=== PATIENT | female | born 1985 | race Caucasian/White ===

== ENCOUNTER 2017-03-04 19:44 | Emergency (ER) | payer MEDICAID ==
[2017-03-04 19:49] VITALS: BP 123/74; BMI 32.2
[2017-03-04 20:50] LABS: BILIRUBIN,URINE NEGATIVE (NEGATIVE); BLOOD/HEMOGLOBIN,URINE 5+ (NEGATIVE); GLUCOSE, URINE NEGATIVE (NEGATIVE); KETONES,URINE NEGATIVE (NEGATIVE); LEUKOCYTE ESTERASE ,URINE 2+ (NEGATIVE); NITRITES,URINE NEGATIVE (NEGATIVE); PROTEIN,URINE NEGATIVE (NEGATIVE); UROBILINOGEN,URINE NORMAL (NORMAL)
--- NOTE | 2017-03-04 20:54 | DR.GENAD ---
HPI - PCP Primary Care Physician: adria panda - HPI Comment HPI Comment: AHDOMINAL PAIN THIS EVENING. NAUSEA, VOMITIND AND GENERALIZE WEAKNESS. PATIENT HAVE HISTORY OF PANCREATITIS. HAVE NOT HAD AN EPISODE RECENTLY. ALSO HISTORY OF PUD. HAVE SLIGHT DYSURIA TODAY. NO FEVER. - Complaint/Symptoms Chief Complaint Doctors Comments: ABDOMINAL PAIN, NAUSEA, VOMITING, WEAKNESS. Chief Complaint:: RIGHT SIDE PAIN, CHEST PAIN AND NAUSEA O/S 30 MIN PRIOR TO ARRIVAL . DIARRHEA STARTED AT 1700. DENIES VOMITING. - Nurses notes reviewed Nurses Notes Review: Yes - Source History Provided: Patient - Mode of Arrival Mode of Arrival: Ambulatory - Timing Onset of Chief Complaint: 03/04/17 Came on: Suddenly - Duration Duration: Constant Duration: Hours - Severity Severity: Moderate PMH - PMH Past Medical History: Yes Past Medical History: Anemia, Anxiety, Depression, GERD, Hypertension, Kidney Stones, PUD Past Surgical History: Yes Surgical History: Cholecystectomy, Hysterectomy - Family History History of Family Medical Conditions: Yes Family Medical History: Hypertension - Social History Does patient currently use any type of tobacco product: No Have you used tobacco products in the last 12 months: No Type of Tobacco Use: None Does any household member use tobacco: No Alcohol Use: None Do you use any recreational Drugs:: No Lives With: Family Lives Where: Home - infectious screening Have you traveled outside the country in the last 6 months?: No Isolation: Standard ROS - Review of Systems Constitutional: Weakness, Fatigue. negative: Chills, Fever, Loss of Appetite Eyes: No Symptoms Reported. negative: Eye Pain, Discharge ENTM: No Symptoms Reported. negative: Ear Pain, Nose Discharge, Nose Congestion , Throat Pain Respiratoy: No Symptoms Reported. negative: Productive Cough, Non-Productive Cough, Short of Breath, Wheezing, Hemoptysis Cardiovascular: No Symptoms Reported. negative: Chest Pain Gastrointestinal/Abdominal: Abdominal Pain, Nausea, Vomiting. negative: Constipation, Diarrhea Genitourinary: Dysuria. negative: Frequency, Hematuria Neurological: Headache, Weakness Musculoskeletal: Muscle Pain Integumentary: Dryness Hematologic/Lymphatic: No Symptoms Reported Endocrine: No Symptoms Reported All Other Systems: Reviewed and Negative PE - Vital Signs Vitals: Temperature 97.8 F Pulse Rate 110 Respiratory Rate 20 Blood Pressure [Right Arm] 106/57 Blood Pressure [Left Arm] 90/57 Blood Pressure [Right Arm] 99/58 Blood Pressure [Left Arm] 119/83 Blood Pressure 123/74 O2 Sat by Pulse Oximetry 100 - General Limitations: No Limitations General Appearance: Alert - Head Head Exam: Normal Inspection - Eyes Eye exam: Normal Appearance - ENT ENT Exam: Normal External Ear Exam External Ear Exam: Normal External Inspection TM/Canal Exam: Left Normal Nose Exam: Normal Nose Exam Mouth Exam: Normal Inspection Throat Exam: Normal Inspection - Neck Neck Exam: Trachea Midline - Chest Chest Inspection: Symmetric Chest Wall Rise - Respiratory Respiratory Exam: Normal Lung Sounds Bilat Respiratory Exam: Bilateral Clear to Auscultation - Cardiovascular Cardiovascular Exam: Regular Rate, Normal Rhythm, Normal Heart Sounds - Abdominal Exam Abdominal Exam: Normal Bowel Sounds, Soft, Tenderness Abdominal Tenderness: Diffuse, Moderate - Extremities Extremities Exam: Normal Inspection - Back Back Exam: Normal Inspection - Neurologic Neurological Exam: Alert, Oriented X3 - Psychiatric Psychiatric Exam: Normal Affect, Normal Mood - Skin Skin Exam: Normal Color MDM - Differential Diagnosis Differential Diagnosis: ABDOMINAL PAIN, PANCRATITIS, UTI, PUD Course - Treatment Treatment: SEE ORDERS. IM PAIN AND NAUSEA MED IN ED. IMPROVED. - Reevaluation 1st: Improved - Education/Counseling Education/Counseling: Patient, Education Educated On: Treatment, Diagnosis, Needs for Follow Up ROR - Labs Reviewed Laboratory Results Reviewed?: Yes Result Diagrams: 03/04/17 21:14 03/04/17 21:14 Laboratory: WBC 9.5 X10^3/uL (3.6-10.0) 03/04/17 21:14 RBC 4.50 X10^6/uL (3.5-5.4) 03/04/17 21:14 Hgb 13.1 g/dL (12.0-16.0) 03/04/17 21:14 Hct 37.8 % (36.0-47.0) 03/04/17 21:14 MCV 84.0 fL (80.0-100.0) 03/04/17 21:14 MCH 29.2 pg (27.0-34.0) 03/04/17 21:14 MCHC 34.7 g/dL (33.0-35.0) 03/04/17 21:14 RDW 13.7 % (11.6-16.5) 03/04/17 21:14 Plt Count 210 X10^3/uL (150.0-450.0) 03/04/17 21:14 MPV 9.3 fL (7.4-11.0) 03/04/17 21:14 Neut % 73.6 % (42.0-75.0) 03/04/17 21:14 Lymph % 15.4 % (21.0-51.0) L 03/04/17 21:14 [place] % 8.2 % (0.0-13.0) 03/04/17 21:14 Eos % 2.1 % (0.9-2.9) 03/04/17 21:14 Baso % 0.7 % (0.2-1.0) 03/04/17 21:14 Neut # 7.0 x10^3/uL (2.2-4.8) H 03/04/17 21:14 Lymph # 1.5 X10^3/uL (1.3-2.9) 03/04/17 21:14 [place] # 0.8 x10^3/uL (0.3-0.8) 03/04/17 21:14 Eos # 0.2 x10^3/uL (0.0-0.2) 03/04/17 21:14 Baso # 0.1 X10^3/uL (0.0-0.1) 03/04/17 21:14 Absolute Nucleated RBC 0.1 /100WBC 03/04/17 21:14 Sodium 141 mmol/L (136-145) 03/04/17 21:14 Corrected Sodium TNP 03/04/17 21:14 Potassium 3.8 mmol/L (3.5-5.1) 03/04/17 21:14 Chloride 105 mmol/L (98-107) 03/04/17 21:14 Carbon Dioxide 27.2 mmol/L (21-32) 03/04/17 21:14 BUN 10 mg/dL (7-18) 03/04/17 21:14 Creatinine 0.82 mg/dL (0.55-1.02) 03/04/17 21:14 Est GFR (MDRD) Af Amer > 60 (>60) 03/04/17 21:14 Est GFR (MDRD) Non-Af > 60 (>60) 03/04/17 21:14 Glucose 99 mg/dL (65-99) 03/04/17 21:14 Calcium 8.8 mg/dL (8.5-10.1) 03/04/17 21:14 Corrected Calcium TNP 03/04/17 21:14 Total Bilirubin 0.70 mg/dL (0.2-1.0) 03/04/17 21:14 AST 11 Units/L (15-37) L 03/04/17 21:14 ALT 19 Units/L (12-78) 03/04/17 21:14 Alkaline Phosphatase 108 Units/L (46-116) 03/04/17 21:14 Total Protein 7.7 g/dL (6.4-8.2) 03/04/17 21:14 Albumin 4.0 g/dL (3.4-5.0) 03/04/17 21:14 Globulin 3.7 g/dL (2.5-4.5) 03/04/17 21:14 Albumin/Globulin Ratio 1.1 Ratio (1.1-2.1) 03/04/17 21:14 Amylase 36 Units/L (25-115) 03/04/17 21:14 Lipase 43 Units/L (73-393) L 03/04/17 21:14 Specimen Type Clean catch urine 03/04/17 20:45 Urine Color Yellow (YELLOW) 03/04/17 20:45 Urine Appearance Hazy (CLEAR) 03/04/17 20:45 Urine pH 6.0 (5.0 - 8.0) 03/04/17 20:45 Ur Specific [place] 1.015 (1.000-1.030) 03/04/17 20:45 Urine Protein Negative (NEGATIVE) 03/04/17 20:45 Urine Glucose (UA) Negative (NEGATIVE) 03/04/17 20:45 Urine Ketones Negative (NEGATIVE) 03/04/17 20:45 Urine Occult Blood 5+ (NEGATIVE) 03/04/17 20:45 Urine Nitrite Negative (NEGATIVE) 03/04/17 20:45 Urine Bilirubin Negative (NEGATIVE) 03/04/17 20:45 Urine Urobilinogen Normal (NORMAL) 03/04/17 20:45 Ur Leukocyte Esterase 2+ (NEGATIVE) 03/04/17 20:45 Urine RBC 0-3 /HPF (NEGATIVE) 03/04/17 20:45 Urine WBC 6-10 /HPF (NEGATIVE) 06/26/17 20:45 Ur Squamous Epith Cells Few /HPF (NEGATIVE) 03/04/17 20:45 Urine Bacteria 1+ /HPF (NEGATIVE) 03/04/17 20:45 Ur Culture Indicated? Yes/culture set up 03/04/17 20:45 - Diagnosis Discharge Problem: Abdominal pain Qualifiers: Abdominal location: generalized Qualified Code(s): R10.84 - Generalized abdominal pain UTI (urinary tract infection) Qualifiers: Urinary tract infection type: acute cystitis Hematuria presence: without hematuria Qualified Code(s): N30.00 - Acute cystitis without hematuria - Discharge Plan Disposition: HOME, SELF-CARE Condition: Stable Prescriptions: Ciprofloxacin HCl [CIPRO 500 MG TAB *] 500 mg PO Q12H #20 tab Promethazine HCl [PHENERGAN TAB 25 MG *] 25 mg PO Q8H PRN #12 tab PRN Reason: Nausea/Vomiting - Follow ups/Referrals Follow ups/Referrals: Amauri Dennis [Primary Care Provider] - 3 days - Instructions Instructions: Abdominal Pain, Adult, [id number], Urinary Tract Infection, [id number] Additional Instructions: RETURN TO ED IF WORSE.
[2017-03-04 20:58] LABS: APPEARANCE,URINE HAZY (CLEAR); COLOR,URINE YELLOW (YELLOW); RBC,URINE 0-3 /HPF (NEGATIVE)
[2017-03-04 20:59] LABS: BACTERIA,URINE 1+ /HPF (NEGATIVE); SQUAMOUS EPITHELIAL CELL,UR FEW /HPF (NEGATIVE)
[2017-03-04] MEDS ORDERED: PHENERGAN INJ 25 MG IM ONE (21:07)
[2017-03-04] MEDS ORDERED: TORADOL 60 MG VIAL IM ONE (21:07)
[2017-03-04] MEDS ORDERED: PHENERGAN INJ 25 MG ONE (21:17)
[2017-03-04] MEDS ORDERED: TORADOL 60 MG VIAL ONE (21:18)
[2017-03-04 21:24] LABS: BASOPHILS # (AUTO) 0.1 X10^3/uL (0.0-0.1); BASOPHILS % (AUTO) 0.7 % (0.2-1.0); EOSINOPHILS # (AUTO) 0.2 x10^3/uL (0.0-0.2); EOSINOPHILS % (AUTO) 2.1 % (0.9-2.9); HEMATOCRIT 37.8 % (36.0-47.0); HEMOGLOBIN 13.1 g/dL (12.0-16.0); LYMPHOCYTES # (AUTO) 1.5 X10^3/uL (1.3-2.9); LYMPHOCYTES % (AUTO) 15.4 % (21.0-51.0); MEAN CORPUSCULAR HEMOGLOBIN 29.2 pg (27.0-34.0); MEAN CORPUSCULAR HGB CONC 34.7 g/dL (33.0-35.0); MEAN PLATELET VOLUME 9.3 fL (7.4-11.0); MONOCYTES # (AUTO) 0.8 x10^3/uL (0.3-0.8); MONOCYTES % (AUTO) 8.2 % (0.0-13.0); NEUTROPHILS % (AUTO) 73.6 % (42.0-75.0); PLATELET COUNT 210 X10^3/uL (150.0-450.0); RED CELL DISTRIBUTION WIDTH 13.7 % (11.6-16.5); WHITE BLOOD COUNT 9.5 X10^3/uL (3.6-10.0)
[2017-03-04 21:36] LABS: ALANINE AMINOTRANSFERASE 19 Units/L (12-78); ALKALINE PHOSPHATASE 108 Units/L (46-116); AMYLASE 36 Units/L (25-115); ASPARTATE AMINO TRANSFERASE 11 Units/L (15-37); BLOOD UREA NITROGEN 10 mg/dL (7-18); CALCIUM 8.8 mg/dL (8.5-10.1); CARBON DIOXIDE 27.2 mmol/L (21-32); CHLORIDE 105 mmol/L (98-107); CREATININE 0.82 mg/dL (0.55-1.02); GLUCOSE 99 mg/dL (65-99); LIPASE 43 Units/L (73-393); SODIUM 141 mmol/L (136-145); TOTAL PROTEIN 7.7 g/dL (6.4-8.2); eGFR BLACK RACES > 60 (>60); eGFR NON BLACK RACES > 60 (>60)
[2017-03-04] MEDS ORDERED: CIPRO TAB 500 MG PO ONE ×2 (22:31→22:34)
== END 2017-03-04 22:42 | disposition home or self-care (01) ==
LOC: ER 19:52
DX: N30.00 Acute cystitis without hematuria (principal); R10.84 Generalized abdominal pain; R07.89 Other chest pain
CPT/HCPCS: 36415; 80053; 81001; 82150; 83690; 85025; 87086; 87088; 87186; 96372; 99282; 99283; J1885; J2550

== ENCOUNTER → 2017-04-23 | Outpatient (CLI) | payer MEDICAID ==
--- NOTE | 2017-04-23 09:32 | US ---
HISTORY: Chronic UTI Study: Abdominal ultrasound Comparison: CT abdomen pelvis September 07, 2014 Technique: Multiple hill scale and color flow Doppler images of the abdomen were obtained. Findings: The liver is normal in echotexture. No intraparenchymal mass or intrahepatic biliary ductal dilatat ion can be identified. The gallbladder is surgically absent. Minimal dilatation of the common bile duct is likely related to prior cholecystectomy. The visualized portions of the pancreas and spleen are normal in their echotexture and size. The right and left kidney are normal in echotexture and size. The right kidney measures 11 cm. The l eft kidney measures 9 cm. No mass, hydronephrosis, or stone can be identified. The visualized portions of the abdominal aorta are normal in size without aneurysmal dilatation. Th e inferior vena cava is unremarkable as well. IMPRESSION: 1. Unremarkable evaluation of the abdomen. Reported By:
--- NOTE | 2017-04-23 10:49 | US ---
History: Pelvic pain. Exam: Pelvic ultrasound Comparison: None. Technique: Multiple grayscale and color flow Doppler images of the pelvis were obtained. Findings: The uterus is surgically absent. The right and left adnexa are unremarkable. The echotexture of the right and left ovaries are unremarkable. The left ovary is normal in size. The right ovary is slig htly enlarged. The midline structure corresponds to the right ovary on CT findings. The right ovary measures 5.3 x 3.6 x 5.1 cm. The left ovary measures 2.8 x 1.6 x 2.9 cm. No adnexal mass or free fl uid can be identified. The bladder is slightly contracted and not adequately evaluated. IMPRESSION: 1. Nonspecific prominence of the right ovary as above. No obvious suspicious mass. Recommend follow up pelvic ultrasound in 2 months to document stability. 2. Remaining exam is unremarkable. Reported By:
[2017-04-27 11:26] LABS: ANTI-NUCLEAR ANTIBODY TEST Detected (None Detected)
== END ==
LOC: RAD 08:31
PROVIDERS: ATTEND Nurse Practitioner Family
DX: N39.0 Urinary tract infection, site not specified (principal); R10.2 Pelvic and perineal pain
CPT/HCPCS: 36415; 76700; 76856; 83036; 86308

== ENCOUNTER 2017-04-28 16:18 | Emergency (ER) | payer MEDICAID ==
[2017-04-28 16:26] VITALS: BP 117/70; BMI 32.8
--- NOTE | 2017-04-28 17:27 | DR.GENAD ---
HPI - PCP Primary Care Physician: pura ventura - Complaint/Symptoms Chief Complaint Doctors Comments: Patient admits to back pain, stomach pain and nausea of two days duration. She denies fever, vomiting or diarrhea. Patient with a history of pancreatitis. Chief Complaint:: back, chest, abd pain with nausea - Source History Provided: Patient - Mode of Arrival Mode of Arrival: Ambulatory - Timing Onset of Chief Complaint: 04/28/17 PMH - PMH Past Medical History: Yes Past Medical History: Anemia, Anxiety, Depression, GERD, Hypertension, Kidney Stones, PUD Past Surgical History: Yes Surgical History: Cholecystectomy, Hysterectomy - Family History History of Family Medical Conditions: Yes Family Medical History: Hypertension - Social History Does patient currently use any type of tobacco product: No Have you used tobacco products in the last 12 months: No Type of Tobacco Use: None Does any household member use tobacco: No Alcohol Use: None Do you use any recreational Drugs:: No Lives With: Alone Lives Where: Home - infectious screening In the last 2 months have you had wt loss of >10#?: NO Have you had fever, night sweats or hemotysis?: No Have you traveled outside the country in the last 6 months?: No Isolation: Standard ROS - Review of Systems Constitutional: negative: Diaphoresis Eyes: No Symptoms Reported ENTM: No Symptoms Reported Respiratoy: No Symptoms Reported Cardiovascular: No Symptoms Reported Gastrointestinal/Abdominal: Abdominal Pain Genitourinary: No Symptoms Reported Neurological: No Symptoms Reported Musculoskeletal: Back Pain Integumentary: No Symptoms Reported Hematologic/Lymphatic: No Symptoms Reported Endocrine: No Symptoms Reported Psychiatric: No Symptoms Reported All Other Systems: Reviewed and Negative PE - Vital Signs Vitals: Temperature 97.9 F Pulse Rate 106 Respiratory Rate 18 Blood Pressure [Right Arm] 106/57 Blood Pressure [Left Arm] 90/57 Blood Pressure [Right Arm] 99/58 Blood Pressure [Left Arm] 119/83 Blood Pressure 117/70 O2 Sat by Pulse Oximetry 99 - General General Appearance: Alert, In No Apparent Distress - Head Head Exam: Normal Inspection, Atraumatic - Eyes Eye exam: Normal Appearance, PERRL, EOMI - ENT ENT Exam: Normal Exam External Ear Exam: Normal External Inspection TM/Canal Exam: Bilateral Normal Nose Exam: Normal Nose Exam Mouth Exam: Normal Inspection Throat Exam: Normal Inspection - Neck Neck Exam: Normal Inspection, Full ROM - Chest Chest Inspection: Normal Inspection - Respiratory Respiratory Exam: Normal Lung Sounds Bilat Respiratory Exam: Bilateral Clear to Auscultation - Cardiovascular Cardiovascular Exam: Regular Rate, Normal Rhythm - Abdominal Exam Abdominal Exam: Soft Abdominal Tenderness: RUQ - Extremities Extremities Exam: Normal Inspection, Full ROM - Back Back Exam: Normal Inspection, Full ROM - Neurologic Neurological Exam: Alert, Oriented X3, CN II-XII Intact - Psychiatric Psychiatric Exam: Normal Affect - Skin Skin Exam: Warm, Dry, Intact Course - Reevaluation 1st: Unchanged ROR - Labs Reviewed Laboratory Results Reviewed?: Yes (UA: 4+bld;2+leuk, 3-6wbc) Result Diagrams: 04/28/17 17:45 04/28/17 17:45 Laboratory: WBC 7.5 X10^3/uL (3.6-10.0) 04/28/17 17:45 RBC 4.73 X10^6/uL (3.5-5.4) 04/28/17 17:45 Hgb 13.4 g/dL (12.0-16.0) 04/28/17 17:45 Hct 39.5 % (36.0-47.0) 04/28/17 17:45 MCV 83.5 fL (80.0-100.0) 04/28/17 17:45 MCH 28.4 pg (27.0-34.0) 04/28/17 17:45 MCHC 34.1 g/dL (33.0-35.0) 04/28/17 17:45 RDW 13.2 % (11.6-16.5) 04/28/17 17:45 Plt Count 255 X10^3/uL (150.0-450.0) 04/28/17 17:45 MPV 9.1 fL (7.4-11.0) 04/28/17 17:45 Neut % 69.8 % (42.0-75.0) 04/28/17 17:45 Lymph % 18.8 % (21.0-51.0) L 04/28/17 17:45 [place] % 8.4 % (0.0-13.0) 04/28/17 17:45 Eos % 1.9 % (0.9-2.9) 04/28/17 17:45 Baso % 1.1 % (0.2-1.0) H 04/28/17 17:45 Neut # 5.2 x10^3/uL (2.2-4.8) H 04/28/17 17:45 Lymph # 1.4 X10^3/uL (1.3-2.9) 04/28/17 17:45 [place] # 0.6 x10^3/uL (0.3-0.8) 04/28/17 17:45 Eos # 0.1 x10^3/uL (0.0-0.2) 04/28/17 17:45 Baso # 0.1 X10^3/uL (0.0-0.1) 04/28/17 17:45 Absolute Nucleated RBC 0.0 /100WBC 04/28/17 17:45 Sodium 143 mmol/L (136-145) 04/28/17 17:45 Corrected Sodium TNP 04/28/17 17:45 Potassium 3.6 mmol/L (3.5-5.1) 04/28/17 17:45 Chloride 107 mmol/L (98-107) 04/28/17 17:45 Carbon Dioxide 30.8 mmol/L (21-32) 04/28/17 17:45 BUN 14 mg/dL (7-18) 04/28/17 17:45 Creatinine 0.93 mg/dL (0.55-1.02) 04/28/17 17:45 Est GFR (MDRD) Af Amer > 60 (>60) 04/28/17 17:45 Est GFR (MDRD) Non-Af > 60 (>60) 04/28/17 17:45 Glucose 92 mg/dL (65-99) 04/28/17 17:45 Calcium 8.5 mg/dL (8.5-10.1) 04/28/17 17:45 Corrected Calcium TNP 04/28/17 17:45 Total Bilirubin 0.60 mg/dL (0.2-1.0) 04/28/17 17:45 AST 13 Units/L (15-37) L 04/28/17 17:45 ALT 19 Units/L (12-78) 04/28/17 17:45 Alkaline Phosphatase 90 Units/L (46-116) 04/28/17 17:45 C-Reactive Protein 0.90 mg/L (0-3.0) 04/28/17 17:45 Total Protein 7.3 g/dL (6.4-8.2) 04/28/17 17:45 Albumin 3.8 g/dL (3.4-5.0) 04/28/17 17:45 Globulin 3.5 g/dL (2.5-4.5) 04/28/17 17:45 Albumin/Globulin Ratio 1.1 Ratio (1.1-2.1) 04/28/17 17:45 Amylase 38 Units/L (25-115) 04/28/17 17:45 Lipase 64 Units/L (73-393) L 04/28/17 17:45 Specimen Type Clean catch urine 04/28/17 18:20 Urine Color Yellow (YELLOW) 04/28/17 18:20 Urine Appearance Clear (CLEAR) 04/28/17 18:20 Urine pH 6.5 (5.0 - 8.0) 04/28/17 18:20 Ur Specific [place] 1.010 (1.000-1.030) 04/28/17 18:20 Urine Protein 1+ (NEGATIVE) 04/28/17 18:20 Urine Glucose (UA) Negative (NEGATIVE) 04/28/17 18:20 Urine Ketones Negative (NEGATIVE) 04/28/17 18:20 Urine Occult Blood 4+ (NEGATIVE) 04/28/17 18:20 Urine Nitrite Negative (NEGATIVE) 04/28/17 18:20 Urine Bilirubin Negative (NEGATIVE) 04/28/17 18:20 Urine Urobilinogen Normal (NORMAL) 04/28/17 18:20 Ur Leukocyte Esterase 2+ (NEGATIVE) 04/28/17 18:20 Urine RBC 01 - 03 /HPF (NEGATIVE) 04/28/17 18:20 Urine WBC 03 - 06 /HPF (NEGATIVE) 04/28/17 18:20 Ur Squamous Epith Cells Few /HPF (NEGATIVE) 04/28/17 18:20 Amorphous Sediment 1+ /HPF (NEGATIVE) 04/28/17 18:20 Urine Bacteria Trace /HPF (NEGATIVE) 04/28/17 18:20 Hyaline Casts Rare /LPF (NEGATIVE) 04/28/17 18:20 Ur Culture Indicated? No/not indicated 04/28/17 18:20 - Diagnosis Discharge Problem: UTI (urinary tract infection) Qualifiers: Urinary tract infection type: acute cystitis Hematuria presence: with hematuria Qualified Code(s): N30.01 - Acute cystitis with hematuria - Discharge Plan Condition: Stable - Follow ups/Referrals Follow ups/Referrals: AWILDA VENTURA [Primary Care Provider] - 3 days - Instructions
[2017-04-28] MEDS ORDERED: ZOFRAN INJ 4 MG VIAL IVP ONE (17:28)
[2017-04-28 17:52] LABS: BASOPHILS # (AUTO) 0.1 X10^3/uL (0.0-0.1); BASOPHILS % (AUTO) 1.1 % (0.2-1.0); EOSINOPHILS # (AUTO) 0.1 x10^3/uL (0.0-0.2); EOSINOPHILS % (AUTO) 1.9 % (0.9-2.9); HEMATOCRIT 39.5 % (36.0-47.0); HEMOGLOBIN 13.4 g/dL (12.0-16.0); LYMPHOCYTES # (AUTO) 1.4 X10^3/uL (1.3-2.9); LYMPHOCYTES % (AUTO) 18.8 % (21.0-51.0); MEAN CORPUSCULAR HEMOGLOBIN 28.4 pg (27.0-34.0); MEAN CORPUSCULAR HGB CONC 34.1 g/dL (33.0-35.0); MEAN CORPUSCULAR VOLUME 83.5 fL (80.0-100.0); MEAN PLATELET VOLUME 9.1 fL (7.4-11.0); MONOCYTES # (AUTO) 0.6 x10^3/uL (0.3-0.8); MONOCYTES % (AUTO) 8.4 % (0.0-13.0); NEUTROPHILS # (AUTO) 5.2 x10^3/uL (2.2-4.8); NEUTROPHILS % (AUTO) 69.8 % (42.0-75.0); PLATELET COUNT 255 X10^3/uL (150.0-450.0); RED BLOOD COUNT 4.73 X10^6/uL (3.5-5.4); RED CELL DISTRIBUTION WIDTH 13.2 % (11.6-16.5); WHITE BLOOD COUNT 7.5 X10^3/uL (3.6-10.0)
[2017-04-28 18:03] LABS: ALANINE AMINOTRANSFERASE 19 Units/L (12-78); ALBUMIN 3.8 g/dL (3.4-5.0); ALKALINE PHOSPHATASE 90 Units/L (46-116); AMYLASE 38 Units/L (25-115); ASPARTATE AMINO TRANSFERASE 13 Units/L (15-37); BLOOD UREA NITROGEN 14 mg/dL (7-18); CALCIUM 8.5 mg/dL (8.5-10.1); CARBON DIOXIDE 30.8 mmol/L (21-32); CHLORIDE 107 mmol/L (98-107); CREATININE 0.93 mg/dL (0.55-1.02); GLUCOSE 92 mg/dL (65-99); LIPASE 64 Units/L (73-393); SODIUM 143 mmol/L (136-145); TOTAL PROTEIN 7.3 g/dL (6.4-8.2); eGFR BLACK RACES > 60 (>60); eGFR NON BLACK RACES > 60 (>60)
[2017-04-28] MEDS ORDERED: ZOFRAN INJ 4 MG VIAL ONE (18:16)
[2017-04-28] MEDS ORDERED: TORADOL 30 MG VIAL IVP ONE (18:38)
[2017-04-28 18:41] LABS: BILIRUBIN,URINE NEGATIVE (NEGATIVE); BLOOD/HEMOGLOBIN,URINE 4+ (NEGATIVE); GLUCOSE, URINE NEGATIVE (NEGATIVE); KETONES,URINE NEGATIVE (NEGATIVE); LEUKOCYTE ESTERASE ,URINE 2+ (NEGATIVE); NITRITES,URINE NEGATIVE (NEGATIVE); PH,URINE 6.5 (5.0 - 8.0); PROTEIN,URINE 1+ (NEGATIVE); UROBILINOGEN,URINE NORMAL (NORMAL)
[2017-04-28 18:51] LABS: APPEARANCE,URINE CLEAR (CLEAR); COLOR,URINE YELLOW (YELLOW)
[2017-04-28] MEDS ORDERED: TORADOL 30 MG VIAL ONE (19:07)
[2017-04-28 19:09] LABS: BACTERIA,URINE TRACE /HPF (NEGATIVE); SQUAMOUS EPITHELIAL CELL,UR FEW /HPF (NEGATIVE)
[2017-04-28 19:10] LABS: AMORPHOUS SEDIMENT,UR 1+ /HPF (NEGATIVE); HYALINE CASTS, URINE RARE /LPF (NEGATIVE)
[2017-04-28] MEDS ORDERED: CIPRO TAB 500 MG PO ONE ×2 (19:46→19:48)
== END 2017-04-28 19:54 | disposition home or self-care (01) ==
LOC: ER 16:31
DX: N30.01 Acute cystitis with hematuria (principal)
CPT/HCPCS: 36415; 80053; 81001; 82150; 83690; 85025; 86140; 96365; 96374; 96375; 99283; A4222; J1885; J2405

== ENCOUNTER 2017-06-02 18:13 | Emergency (ER) | payer MEDICAID ==
[2017-06-02 18:20] VITALS: BP 102/72; BMI 33.5
[2017-06-02] MEDS ORDERED: ULTRAM PO ONE (19:57)
[2017-06-02] MEDS ORDERED: TORADOL TAB PO ONE ×2 (19:57→20:06)
[2017-06-02] MEDS ORDERED: BACTRIM DS TAB PO ONE ×2 (19:57→20:06)
--- NOTE | 2017-06-02 19:58 | DR.GENAD ---
HPI - PCP Primary Care Physician: audrey - HPI Comment HPI Comment: HISTORY BELOW. - Complaint/Symptoms Chief Complaint Doctors Comments: PUSTULE WITH REDNESS LEFT THIGH TIMES ONE DAY. REDNESS SPREADING. NO FEVER. PAIN WORSE TONIGHT. HAVE NOT TAKEN ANTIBOTICS FOR IT. NO DRINAGE. Chief Complaint:: pt has abcess on lt lower leg x 1 day - Nurses notes reviewed Nurses Notes Review: Yes - Source History Provided: Patient - Mode of Arrival Mode of Arrival: Ambulatory - Timing Onset of Chief Complaint: 06/01/17 Came on: Suddenly - Duration Duration: Constant Duration: Days - Severity Severity: Moderate PMH - PMH Past Medical History: Yes Past Medical History: Anemia, Anxiety, Depression, GERD, Hypertension, Kidney Stones, PUD Past Surgical History: Yes Surgical History: Cholecystectomy, Hysterectomy - Family History History of Family Medical Conditions: Yes Family Medical History: Hypertension - Social History Does any household member use tobacco: No Do you use any recreational Drugs:: No Lives With: Family Lives Where: Home - infectious screening In the last 2 months have you had wt loss of >10#?: NO Have you had fever, night sweats or hemotysis?: No Have you traveled outside the country in the last 6 months?: No Isolation: Standard ROS - Review of Systems Constitutional: No Symptoms Reported. negative: Chills, Fever Eyes: No Symptoms Reported. negative: Eye Pain, Discharge ENTM: No Symptoms Reported. negative: Ear Pain, Nose Discharge, Nose Congestion , Throat Pain Respiratoy: No Symptoms Reported. negative: Productive Cough, Non-Productive Cough, Short of Breath, Wheezing, Hemoptysis Cardiovascular: No Symptoms Reported. negative: Chest Pain Gastrointestinal/Abdominal: No Symptoms Reported. negative: Abdominal Pain, Diarrhea, Nausea, Vomiting Genitourinary: No Symptoms Reported. negative: Dysuria, Frequency, Hematuria Neurological: No Symptoms Reported. negative: Headache, Weakness, Dizziness Musculoskeletal: Muscle Pain, Left, Leg Integumentary: Change in Color, Other (REDNESS LEFT THIGH SIZE OF ORANGE.) Hematologic/Lymphatic: No Symptoms Reported Endocrine: No Symptoms Reported All Other Systems: Reviewed and Negative PE - Vital Signs Vitals: Temperature 98.4 F Pulse Rate 103 Respiratory Rate 18 Blood Pressure [Right Arm] 106/57 Blood Pressure [Left Arm] 90/57 Blood Pressure [Right Arm] 99/58 Blood Pressure [Left Arm] 119/83 Blood Pressure 102/72 O2 Sat by Pulse Oximetry 100 - General Limitations: No Limitations General Appearance: Alert - Head Head Exam: Normal Inspection - Eyes Eye exam: Normal Appearance - ENT ENT Exam: Normal External Ear Exam External Ear Exam: Normal External Inspection TM/Canal Exam: Bilateral Normal Nose Exam: Normal Nose Exam Mouth Exam: Normal Inspection Throat Exam: Normal Inspection - Neck Neck Exam: Trachea Midline - Chest Chest Inspection: Symmetric Chest Wall Rise - Respiratory Respiratory Exam: Normal Lung Sounds Bilat Respiratory Exam: Bilateral Clear to Auscultation - Cardiovascular Cardiovascular Exam: Regular Rate, Normal Rhythm, Normal Heart Sounds - Abdominal Exam Abdominal Exam: Normal Bowel Sounds, Soft. negative: Tenderness - Extremities Extremities Exam: Tenderness (LT THIGH.) - Back Back Exam: Normal Inspection - Neurologic Neurological Exam: Alert, Oriented X3 - Psychiatric Psychiatric Exam: Anxious - Skin Skin Exam: Erythema MDM - Differential Diagnosis Differential Diagnosis: CELLULITIS LEFT THIGH. Course - Treatment Treatment: SEE ORDERS. - Education/Counseling Education/Counseling: Patient, Education Educated On: Treatment, Diagnosis, Needs for Follow Up - Diagnosis Discharge Problem: Cellulitis of left thigh - Discharge Plan Disposition: 01 HOME, SELF-CARE Condition: Stable Prescriptions: Ibuprofen [MOTRIN TAB 800 MG *] 800 mg PO Q8H PRN #20 tab PRN Reason: Pain/Inflammation Sulfamethoxazole-Trimethoprim [BACTRIM DS TAB 800/160 MG *] 1 tab PO BID #20 tab Tramadol HCl 50 mg PO Q8H #15 tablet - Follow ups/Referrals Follow ups/Referrals: AWILDA REVELES [Primary Care Provider] - 3 days - Instructions Instructions: Cellulitis, Adult, [id number] Additional Instructions: RETURN TO ED IF WORSE.
[2017-06-02] MEDS ORDERED: ULTRAM ONE (20:07)
== END 2017-06-02 20:19 | disposition home or self-care (01) ==
LOC: ER 18:13
DX: L03.116 Cellulitis of left lower limb (principal)
CPT/HCPCS: 99282

== ENCOUNTER → 2017-09-18 | Outpatient (CLI) | payer MEDICAID ==
[2017-09-17 06:24] VITALS: BP 111/72
[2017-09-18 17:13] LABS: BASOPHILS # (AUTO) 0.1 X10^3/uL (0.0-0.1); EOSINOPHILS # (AUTO) 0.1 x10^3/uL (0.0-0.2); EOSINOPHILS % (AUTO) 1.6 % (0.9-2.9); HEMATOCRIT 43.3 % (36.0-47.0); HEMOGLOBIN 14.8 g/dL (12.0-16.0); LYMPHOCYTES # (AUTO) 1.4 X10^3/uL (1.3-2.9); MEAN CORPUSCULAR HEMOGLOBIN 28.8 pg (27.0-34.0); MEAN CORPUSCULAR HGB CONC 34.2 g/dL (33.0-35.0); MEAN CORPUSCULAR VOLUME 84.1 fL (80.0-100.0); MEAN PLATELET VOLUME 8.9 fL (7.4-11.0); MONOCYTES # (AUTO) 0.6 x10^3/uL (0.3-0.8); MONOCYTES % (AUTO) 7.1 % (0.0-13.0); NEUTROPHILS # (AUTO) 5.8 x10^3/uL (2.2-4.8); NEUTROPHILS % (AUTO) 72.3 % (42.0-75.0); PLATELET COUNT 288 X10^3/uL (150.0-450.0); RED BLOOD COUNT 5.15 X10^6/uL (3.5-5.4)
[2017-09-18 17:28] LABS: ALANINE AMINOTRANSFERASE 27 Units/L (12-78); ALBUMIN 4.6 g/dL (3.4-5.0); ALKALINE PHOSPHATASE 101 Units/L (46-116); ASPARTATE AMINO TRANSFERASE 20 Units/L (15-37); BLOOD UREA NITROGEN 9 mg/dL (7-18); CALCIUM 9.3 mg/dL (8.5-10.1); CHLORIDE 100 mmol/L (98-107); CREATININE 0.84 mg/dL (0.55-1.02); SODIUM 139 mmol/L (136-145); TOTAL PROTEIN 8.4 g/dL (6.4-8.2); eGFR BLACK RACES > 60 (>60); eGFR NON BLACK RACES > 60 (>60)
[2017-09-18 18:31] LABS: ERYTHROCYTE SEDIMENTATION RATE 2 MM/HOUR (0-20)
[2017-09-18 18:32] LABS: RHEUMATOID FACTOR NEGATIVE (NEGATIVE)
[2017-09-25 06:45] LABS: ANTI-NUCLEAR ANTIBODY TEST None Detected (None Detected)
== END ==
LOC: LAB 16:47
PROVIDERS: ATTEND Nurse Practitioner Family
DX: R76.8 Other specified abnormal immunological findings in serum (principal); R10.84 Generalized abdominal pain; Z82.61 Family history of arthritis
CPT/HCPCS: 36415; 80053; 85025; 85652; 86140; 86160; 86200; 86225; 86308; 86430

== ENCOUNTER → 2017-12-02 | Outpatient (CLI) | payer MEDICAID ==
[2017-09-17 06:24] VITALS: BP 111/72
[2017-12-02 14:42] LABS: CHLAMYDIA TRACH URINE NOT DETECTED (NOT DETECT)
== END ==
LOC: LAB 12:58
PROVIDERS: ATTEND Nurse Practitioner Family
DX: N89.8 Other specified noninflammatory disorders of vagina (principal)
CPT/HCPCS: 87491; 87591

== ENCOUNTER 2018-01-21 13:13 | Emergency (ER) | payer MEDICAID ==
[2018-01-21 13:18] VITALS: BP 111/71; BMI 29.0
--- NOTE | 2018-01-21 13:47 | DR.EXTPAIN ---
HPI - Time seen Time seen: 13:42 - PCP Primary Care Physician: pura ventura - Complaint/Symptoms Chief Complaint Doctor Comments: Patient presents with complaint of low back pain that she has had for several years. She has had several recommendation pain relief to include surgery but she has refused. MRI lumbar spine 07/03/13: L4-L5: ...there is mild desiccation of the disc with mild noncompressive disc burging. Ther neural foramina are patent. Mild facet arthropathy is identified.. Chief Complaint:: pt stated in 2012 she had a epidural and they hit a nerve and every now and then it flares up and today its bad. - Source History Provided: Patient - Mode of arrival Mode of Arrival: Ambulatory - Timing Onset of Chief Complaint: 01/19/18 PMH - PMH Past Medical History: Yes Past Medical History: Anemia, Anxiety, Depression, GERD, Hypertension, Kidney Stones, PUD Past Surgical History: Yes Surgical History: Cholecystectomy, Hysterectomy - Family History History of Family Medical Conditions: Yes Family Medical History: Hypertension - Social History Does patient currently use any type of tobacco product: No Have you used tobacco products in the last 12 months: No Type of Tobacco Use: None Does any household member use tobacco: No Alcohol Use: None Do you use any recreational Drugs:: No Lives With: Family Lives Where: Home - infectious screening In the last 2 months have you had wt loss of >10#?: NO Have you had fever, night sweats or hemotysis?: No Have you traveled outside the country in the last 6 months?: No Isolation: Standard ROS - Review of Systems Eyes: No Symptoms Reported ENTM: No Symptoms Reported Respiratoy: No Symptoms Reported Cardiovascular: No Symptoms Reported Gastrointestinal/Abdominal: No Symptoms Reported Genitourinary: No Symptoms Reported Neurological: No Symptoms Reported Musculoskeletal: No Symptoms Reported Integumentary: No Symptoms Reported Hematologic/Lymphatic: No Symptoms Reported Endocrine: No Symptoms Reported Psychiatric: No Symptoms Reported All Other Systems: Reviewed and Negative PE - Vital Signs Vitals: Temperature 98.7 F Pulse Rate 95 Respiratory Rate 16 Blood Pressure [Right Arm] 106/57 Blood Pressure [Left Arm] 90/57 Blood Pressure [Right Arm] 99/58 Blood Pressure [Left Arm] 119/83 Blood Pressure 111/71 O2 Sat by Pulse Oximetry 100 - General General Appearance: Alert, Anxious - Head Head Exam: Normal Inspection, Atraumatic - Eyes Eye exam: Normal Appearance, PERRL, EOMI - ENT ENT Exam: Normal Exam - Neck Neck Exam: Normal Inspection, Full ROM - Chest Chest Inspection: Normal Inspection, Symmetric Chest Wall Rise - Respiratory Respiratory Exam: Normal Lung Sounds Bilat Respiratory Exam: Bilateral Clear to Auscultation - Cardiovascular Cardiovascular Exam: Regular Rate, Normal Rhythm - Abdominal Exam Abdominal Exam: Normal Inspection, Normal Bowel Sounds - Extremities Extremities Exam: Normal Inspection, Full ROM - Upper Extremities Shoulder Exam: Normal Inspection Arm Exam: Normal Inspection, Full ROM Elbow Exam: Normal Inspection Forearm Exam: Normal Inspection, Full ROM Hand Exam: Normal Inspection Neuromotor Exam: Normal Exam Neurosensory Exam: Normal Exam Hand Tendon Exam: negative: Flexor Digitorium Superficialis (Location), Extensor Tendon (Location), Other Upper Ext. Vascular Exam: Capillary Refill - Lower Extremities Hip/Pelvis Exam: Normal Inspection Upper Leg Exam: Normal Inspection Knee Exam: Normal Inspection Lower Leg Exam: Normal Inspection Ankle Exam: Normal Inspection Foot/Toe Exam: Normal Inspection Neurovascular/Tendon Exam: Normal Capillary Refill Gait Exam: Observed and Normal - Back Back Exam: Normal Inspection, Tenderness, Paraspinal Tenderness - Neurological Neurological Exam: Alert, Oriented X3, CN II-XII Intact - Psychiatric Psychiatric Exam: Normal Affect - Skin Skin Exam: Warm, Dry, Intact Type of Lesion: negative: Rash, Abscess, Laceration, Foreign Body, Bite/Sting, Abrasion, Other Course - Education/Counseling Educated On: Treatment, Diagnosis, Prognosis, Needs for Follow Up - Diagnosis Discharge Problem: Low back pain Qualifiers: Chronicity: chronic Back pain laterality: midline Sciatica presence: without sciatica Qualified Code(s): M54.5 - Low back pain - Discharge Plan Condition: Stable Prescriptions: Ketorolac Tromethamine [Toradol Tab] 10 mg PO Q8H PRN #12 tab PRN Reason: Pain - Follow ups/Referrals Follow ups/Referrals: AWILDA VENTURA [Primary Care Provider] - 3 days - Instructions Instructions: Back Pain, Adult
[2018-01-21] MEDS ORDERED: TORADOL 60 MG VIAL IM ONE (13:53)
[2018-01-21] MEDS ORDERED: TORADOL 60 MG VIAL ONE (14:02)
== END 2018-01-21 14:30 | disposition home or self-care (01) ==
LOC: ER 13:20
DX: M54.5 Low back pain (principal)
CPT/HCPCS: 96372; 99282; J1885